=== PATIENT | male | born 1980 | race Caucasian/White ===

== ENCOUNTER → 2019-04-22 | Outpatient (CLI) | payer BC ==
[~2019-04-22] MED LIST: TYLENOL 325MG325 MG PO; VISTARIL 2525 MG/CAP PO
== END ==
LOC: COL.RAD 13:19
DX: I86.1 Scrotal varices (principal); N43.3 Hydrocele, unspecified

== ENCOUNTER → 2023-02-13 | Outpatient (CLI) | payer BC | LOC: COL.LAB 09:08 | DX: Z01.89 Encounter for other specified special examinations (principal) ==